=== PATIENT | male | born 1955 | race Caucasian/White ===

== ENCOUNTER 2018-05-23 17:51 | Emergency (ER) | payer MEDICARE, OTHER ==
[~2018-05-23] VITALS: Ht 188 cm; Wt 120.2 kg
[~2018-05-23 17:51] MED LIST: BUPR150ER PO; CYCL10 PO; Citrate Of Mag300 ML PO; DOXY100 PO; DULO60 PO; HYDACE7.5 PO; IBUP800 PO; METPRE4DP PO; Norco 5-325 Ta1 EACH PO; PSYL5.85P PO; Prozac20 MG; ZOLP10 PO
[2018-05-23] MEDS ORDERED: TRAZ50 PO (18:18)
[2018-05-23] MEDS ORDERED: DULO30 PO (18:18)
== END 2018-05-23 19:29 | disposition home or self-care (01) ==
LOC: ER 17:51
DX: J40 Bronchitis, not specified as acute or chronic (principal); F32.9 Major depressive disorder, single episode, unspecified; Z79.899 Other long term (current) drug therapy; Z87.891 Personal history of nicotine dependence
CPT/HCPCS: 71046; 94640; 99283-25

== ENCOUNTER 2018-09-26 20:49 | Emergency (ER) | payer MEDICARE, OTHER ==
[~2018-09-26] VITALS: Ht 185.4 cm; Wt 122.5 kg
[~2018-09-26 20:49] MED LIST changes: +DULO30 PO; +TRAZ50 PO
[2018-09-26] MEDS ORDERED: BP MED (21:01)
[2018-09-26 22:25] LABS: Source, Urine Clean Catch
[2018-09-26 22:30] LABS: Bilirubin, Urine Neg (Neg); Blood, Urine 4+ (Neg); Glucose Qualitative, Urine Neg (Neg); Ketones, Urine Neg (Neg); Leukocyte Esterase, Urine 2+ (Neg); Nitrite, Urine Neg (Neg); Protein, Urine 1+ (Neg); Specific Gravity, Urine 1.025 (1.003-1.022); Urobilinogen, Urine NORM (Normal)
[2018-09-26 22:39] LABS: Appearance, Urine Hazy (Clear); Bacteria Rare /hpf; Calcium Oxalate Crystals Few /hpf; Color, Urine Yellow (P-Yellow); Squamous Epithelial Cells Not Seen /hpf (Few)
[2018-09-27] MEDS ORDERED: Roxicodone5 MG PO (00:08)
== END 2018-09-27 00:44 | disposition home or self-care (01) ==
LOC: ER 20:49
PROVIDERS: Emergency Medicine
DX: S22.32XA Fracture of one rib, left side, initial encounter for closed fracture (principal); R59.0 Localized enlarged lymph nodes; F32.9 Major depressive disorder, single episode, unspecified; I10 Essential (primary) hypertension; Z79.899 Other long term (current) drug therapy; Z87.891 Personal history of nicotine dependence; W01.0XXA Fall on same level from slipping, tripping and stumbling without subsequent striking against object, initial encounter
CPT/HCPCS: 71046; 71260; 74177; 81001; 87086; 96361; 96374-59; 99284-25; A9270; J1170; J7030; Q9967

== ENCOUNTER → 2019-11-21 | Outpatient (CLI) | payer MEDICARE, OTHER ==
[~2019-11-21] MED LIST changes: +BP MED; +Roxicodone5 MG PO
[2019-11-21 12:57] LABS: BASOPHILS ABSOLUTE AUTO 0.05 K/mm3 (0.00-0.23); BASOPHILS PERCENT AUTO 1 % (0-2); EOSINOPHILS ABSOLUTE AUTO 0.15 K/mm3 (0.00-0.68); EOSINOPHILS PERCENT AUTO 3 % (0-6); Hematocrit 42.6 % (37.0-53.0); Hemoglobin 14.5 g/dL (13.5-17.5); IMMATURE GRAN ABSOLUTE AUTO 0.01 K/mm3 (0.00-0.10); IMMATURE GRAN PERCENT AUTO 0 % (0-1); LYMPHOCYTES ABSOLUTE AUTO 1.93 K/mm3 (0.84-5.20); LYMPHOCYTES PERCENT AUTO 34 % (21-46); MONOCYTES ABSOLUTE AUTO 0.51 K/mm3 (0.16-1.47); MONOCYTES PERCENT AUTO 9 % (4-13); Mean Corpuscular HGB 29.5 pg (26.0-34.0); Mean Corpuscular Volume 87 fL (80-100); Mean Platelet Volume 9.4 fL (9.1-12.4); NEUTROPHILS PERCENT AUTO 54 % (41-73); Platelet Count 197 K/mm3 (150-400); RDW Coefficient Variation 13.3 % (11.7-14.2); RDW Standard Deviation 41.5 fL (35.1-46.3); Red Blood Cell Count 4.92 M/mm3 (4.30-5.90); White Blood Cell Count 5.75 K/mm3 (4.00-11.30)
[2019-11-21 13:05] LABS: Alanine Aminotransfer (ALT/SGP 33 U/L (12-78); Albumin, Blood 4.1 g/dL (3.4-5.0); Albumin/Globulin Ratio 1.1 (0.8-1.8); Alk Phos 48 U/L (40-126); Anion Gap 6 mmol/L (6-16); Aspartate Aminotrans (AST/SGOT 21 U/L (12-37); Bilirubin, Total 0.5 mg/dL (0.1-1.0); Blood Urea Nitrogen 17 mg/dL (8-24); Bun/Creatinine Ratio 20.5 (12.0-20.0); CO2, Blood 30 mmol/L (21-32); Calcium, Blood 9.3 mg/dL (8.5-10.1); Chloride, Blood 104 mmol/L (98-108); Creatinine, Blood 0.83 mg/dL (0.60-1.20); Globulin, Blood 3.6 g/dL (2.2-4.0); Glomerular Filtration Rate >60 (60-); Glucose, Blood 93 mg/dL (70-99); Potassium, Blood 4.1 mmol/L (3.5-5.5); Sodium, Blood 140 mmol/L (136-145); Total Protein, Blood 7.7 g/dL (6.4-8.2)
== END | disposition home or self-care (01) ==
LOC: LAB SHORT 12:48 → LAB EV 12:48
PROVIDERS: Physician Assistant
DX: R55 Syncope and collapse (principal); R53.83 Other fatigue; R06.00 Dyspnea, unspecified
CPT/HCPCS: 80053; 83880; 84443; 85025; 85379

== ENCOUNTER 2020-01-01 12:03 | Emergency (ER) | payer MEDICARE, OTHER ==
[~2020-01-01] VITALS: Ht 185.4 cm; Wt 129.3 kg
[2020-01-01 12:48] LABS: BASOPHILS ABSOLUTE AUTO 0.04 K/mm3 (0.00-0.23); BASOPHILS PERCENT AUTO 1 % (0-2); EOSINOPHILS ABSOLUTE AUTO 0.12 K/mm3 (0.00-0.68); EOSINOPHILS PERCENT AUTO 2 % (0-6); Hematocrit 45.3 % (37.0-53.0); Hemoglobin 15.3 g/dL (13.5-17.5); IMMATURE GRAN ABSOLUTE AUTO 0.02 K/mm3 (0.00-0.10); IMMATURE GRAN PERCENT AUTO 0 % (0-1); LYMPHOCYTES PERCENT AUTO 21 % (21-46); MONOCYTES ABSOLUTE AUTO 0.73 K/mm3 (0.16-1.47); MONOCYTES PERCENT AUTO 9 % (4-13); Mean Corpuscular HGB Conc 33.8 g/dL (31.5-36.5); Mean Corpuscular Volume 86 fL (80-100); Mean Platelet Volume 9.1 fL (9.1-12.4); NEUTROPHILS PERCENT AUTO 68 % (41-73); Platelet Count 240 K/mm3 (150-400); RDW Coefficient Variation 13.8 % (11.7-14.2); RDW Standard Deviation 43.3 fL (35.1-46.3); Red Blood Cell Count 5.28 M/mm3 (4.30-5.90); White Blood Cell Count 8.21 K/mm3 (4.00-11.30)
[2020-01-01 13:20] LABS: Alanine Aminotransfer (ALT/SGP 37 U/L (12-78); Albumin, Blood 4.3 g/dL (3.4-5.0); Albumin/Globulin Ratio 1.2 (0.8-1.8); Alk Phos 63 U/L (50-136); Anion Gap 5 mmol/L (6-16); Aspartate Aminotrans (AST/SGOT 38 U/L (12-37); Bilirubin, Total 0.5 mg/dL (0.1-1.0); Blood Urea Nitrogen 20 mg/dL (8-24); CO2, Blood 29 mmol/L (21-32); Calcium, Blood 9.2 mg/dL (8.5-10.1); Chloride, Blood 107 mmol/L (98-108); Creatinine, Blood 0.87 mg/dL (0.60-1.20); Globulin, Blood 3.5 g/dL (2.2-4.0); Glomerular Filtration Rate >60 (60-); Glucose, Blood 96 mg/dL (70-99); Potassium, Blood 4.1 mmol/L (3.5-5.5); Sodium, Blood 141 mmol/L (136-145); Total Protein, Blood 7.8 g/dL (6.4-8.2); Troponin I <0.015 ng/mL (0.000-0.040)
[2020-01-01] MEDS ORDERED: MECL25 PO (14:09)
== END 2020-01-01 16:09 | disposition home or self-care (01) ==
LOC: ER 12:03
PROVIDERS: Emergency Medicine
DX: H81.399 Other peripheral vertigo, unspecified ear (principal); F32.9 Major depressive disorder, single episode, unspecified; K21.9 Gastro-esophageal reflux disease without esophagitis; Z79.899 Other long term (current) drug therapy
CPT/HCPCS: 36415; 70450; 71046; 80053; 83880; 84484; 85025; 93005; 93010; 99284-25

== ENCOUNTER 2024-10-03 06:55 | Day surgery (SDC) | payer OTHER ==
[~2024-10-03] VITALS: Ht 182.9 cm; Wt 121.9 kg
[~2024-10-03 06:55] MED LIST changes: +ALBU2.5V5 INH; +ALBU90OI INH; +AMLO10 PO; +ASCO500 PO; +ASMANEX HFA13 G4 INH; +DULERA 200 MCG-13 GM INH; +EPIPEN0.3 MG/0.3 IM; +FEROSUL325 M1 PO; +Flomax0.4 MG PO; +LOSARTAN POTAS100 M1 PO; +MECL25 PO; +OMEP20ER PO; +Prednisone20 MG PO; +ROFL500T PO; +SENN187 PO; +TIOT18 INH; +TRAZ100 PO; -TRAZ50 PO; +XOLAIR SC; +ZYRTEC10 M2 PO
[2024-10-03 07:35] VITALS: BP 124/72
--- NOTE | 2024-10-03 07:48 | NUR ---
PATIENT REPORTS LEAVING DENTURES AT HOME. WAI LEI, TO DRIVE HOME. PATIENT SPOKE TO DR QUINONES ABOUT HER BOWEL PREP RESULTS. STATES IT WAS LIKE "WATER" DARK YELLOW AND CLEAR, BUT NOT SURE HOW CLEAR.
--- NOTE | 2024-10-03 07:49 | NUR ---
10/03/24 0749 Abby Bojorquez History, Chart, Medications and Allergies reviewed before start of procedure. MONITOR INTACT WITH CONTINUOUS PULSE OXIMETRY, CONTINUOUS END TITAL CO2, 3-LEAD EKG AND INTERMITTENT BLOOD PRESSURE. 3-LEAD EKG REVIEWED WITH PHYSICIAN PRIOR TO START OF PROCEDURE. O2 VIA POM INTACT THROUGHOUT SEDATION/PROCEDURE. SEE ANESTHESIA RECORD.
[2024-10-03] MEDS ORDERED: Ipratropium/Albuterol SulF 2.5-0.5MG/3 ML Amp INH ONE (09:05)
[2024-10-03] MEDS ORDERED: Albuterol 2.5 MG/3 ML VIAL ONE (09:22)
[2024-10-03] MEDS ORDERED: Albuterol 2.5 MG/3 ML VIAL INH ONE (09:25)
[2024-10-03 09:34] VITALS: BP 129/77
--- NOTE | 2024-10-03 09:40 | NUR ---
STEP DOWN PT OUT TO STEP DOWN AWAKE AND TALKING W STAFF. VSS W SPO2 >94% ON 10L OXYGEN. PT GIVEN HIS HEARING AID WHICH HE PLACED BACK IN HIS LEFT EAR. DR. QUINONES UPDATING PT ON HOW PROCEDURE WENT. PT CURRENTLY RESTING COMFORTABLY IN BED IN NO DISTRESS ON RM AIR.
[2024-10-03 10:00] VITALS: BP 150/84
[2024-10-03 10:18] VITALS: BP 147/83
--- NOTE | 2024-10-03 10:23 | NUR ---
Discharge instructions reviewed with patient. Patient verbalizes understanding. Copy given to patient to take home. Patient States Post-Procedure ride home has been arranged. Discharged via wheelchair to private car for ride home.
== END 2024-10-03 23:00 | disposition home or self-care (01) ==
LOC: ORSCMMR 06:55 → ORD 08:15 → ORSCMMR 23:00
PROVIDERS: Surgery
PROC: 0DBK8ZX Excision of Ascending Colon, Via Natural or Artificial Opening Endoscopic, Diagnostic (ICD-10-PCS; principal; 2024-10-03 08:15)
PROC: 0DB78ZX Excision of Stomach, Pylorus, Via Natural or Artificial Opening Endoscopic, Diagnostic (ICD-10-PCS; principal; 2024-10-03 08:15)
PROC: 0DB48ZX Excision of Esophagogastric Junction, Via Natural or Artificial Opening Endoscopic, Diagnostic (ICD-10-PCS; principal; 2024-10-03 08:15)
DX: Z12.11 Encounter for screening for malignant neoplasm of colon (principal); Z87.19 Personal history of other diseases of the digestive system; K21.9 Gastro-esophageal reflux disease without esophagitis; R13.19 Other dysphagia; K22.70 Barrett's esophagus without dysplasia; D12.2 Benign neoplasm of ascending colon; K31.7 Polyp of stomach and duodenum; I10 Essential (primary) hypertension; J44.9 Chronic obstructive pulmonary disease, unspecified; G47.33 Obstructive sleep apnea (adult) (pediatric); F41.9 Anxiety disorder, unspecified; F32.A Depression, unspecified; M79.7 Fibromyalgia; Z85.46 Personal history of malignant neoplasm of prostate; F43.10 Post-traumatic stress disorder, unspecified; B19.20 Unspecified viral hepatitis C without hepatic coma
CPT/HCPCS: 88305; 88342; J2704; J7120